=== PATIENT | male | born 1955 | race Caucasian/White ===

== ENCOUNTER → 2016-10-27 | Outpatient (CLI) | payer BC ==
[~2016-10-27] MED LIST: ATOR10TA82 PO
--- NOTE | 2016-10-27 11:05 | DIAGNOSTIC IMAGING REPORT ---
LEFT LOWER LEG ULTRASOUND CLINICAL HISTORY: L03.116 Cellulitis of left lower legR22.9 Lump of skin left lower COMPARISON STUDY: None. FINDINGS: There is thickening and increased echogenicity within the subcutaneous fat of the medial left lower leg. There is also subcutaneous edema. No loculated fluid collections or masses identified. IMPRESSION: Thickening and increased echogenicity within the subcutaneous fat of the medial left lower leg consistent with a cellulitis. No abscess identified. Electronically signed by: Aren Jung M.D. 10/27/2016 11:03 AM Dictated Date/Time: 10/27/2016 11:01 AM
== END ==
LOC: C.ULTR 10:23
PROVIDERS: ATTEND Internal Medicine
DX: L03.116 Cellulitis of left lower limb (principal); R22.9 Localized swelling, mass and lump, unspecified

== ENCOUNTER → 2017-03-10 | Outpatient (CLI) | payer BC ==
[~2017-03-10] MED LIST changes: -ATOR10TA82 PO; +ATOR10TA88 PO
[2017-03-10 11:16] LABS: BASO % 0.1 %; BASO ABS # 0.01 K/uL (0-0.2); COMPLETE YES; EOS % 1.3 %; HEMATOCRIT 45.8 % (42-52); IG% 0.4 %; LYMPH % 35.9 %; LYMPH ABS # 2.49 K/uL (1.2-3.4); MEAN CELL VOLUME 87.7 fL (80-100); MEAN CORPUSCULAR HEMOGLOBIN 30.5 pg (25-34); MEAN CORPUSCULAR HGB CONC 34.7 g/dl (32-36); MEAN PLATELET VOLUME 9.8 fL (7.4-10.4); MONO % 8.1 %; NEUT % 54.2 %; PLATELET COUNT 93 K/uL (130-400); PLT ESTIMATE DECREASED; RED BLOOD COUNT 5.22 M/uL (4.7-6.1); WHITE BLOOD COUNT 6.93 K/uL (4.8-10.8)
[2017-03-10 11:57] LABS: ALT/SGPT 107 U/L (12-78); BLOOD UREA NITROGEN 10 mg/dl (7-18); CALCIUM 8.7 mg/dl (8.5-10.1); CARBON DIOXIDE 28 mmol/L (21-32); CHLORIDE 105 mmol/L (98-107); CHOLESTEROL 203 mg/dl (0-200); CREATININE 0.86 mg/dl (0.60-1.40); GLUCOSE 119 mg/dl (70-99); POTASSIUM 4.2 mmol/L (3.5-5.1); SODIUM 138 mmol/L (136-145); TRIGLYCERIDES 84 mg/dl (0-150); VERY LOW DENSITY LIPOPROT CALC 17 mg/dl
[2017-03-10 12:02] LABS: ALKALINE PHOSPHATASE 116 U/L (45-117); AST/SGOT 47 U/L (15-37); CHOLESTEROL/HDL RATIO 3.8; HDL CHOLESTEROL 53 mg/dl; LDL CHOLESTEROL CALCULATED 133 mg/dl
== END | disposition home or self-care (01) ==
LOC: C.LAB1850 09:42
PROVIDERS: ATTEND Internal Medicine
DX: E78.5 Hyperlipidemia, unspecified (principal); D69.6 Thrombocytopenia, unspecified; R97.20 Elevated prostate specific antigen [PSA]; L03.116 Cellulitis of left lower limb

== ENCOUNTER → 2017-05-11 | Outpatient (CLI) | payer BC ==
[~2017-05-11] MED LIST changes: +ATOR10TA82 PO; -ATOR10TA88 PO
== END | disposition home or self-care (01) ==
LOC: C.LAB1850 10:49
PROVIDERS: ATTEND Internal Medicine
DX: R74.0 Nonspecific elevation of levels of transaminase and lactic acid dehydrogenase [LDH] (principal)